=== PATIENT | male | born 1980 | race Caucasian/White ===

== ENCOUNTER → 2019-08-09 | Outpatient (REF) | payer BC | LOC: M SFHCLERA 17:27 | PROVIDERS: ATTEND Nurse Practitioner Family | DX: J10.1 Influenza due to other identified influenza virus with other respiratory manifestations (principal) ==

== ENCOUNTER → 2020-06-14 | Outpatient (CLI) | payer BC | LOC: M LABSMTC 14:18 | PROVIDERS: ATTEND Family Medicine | DX: Z20.828 Contact with and (suspected) exposure to other viral communicable diseases (principal) ==